=== PATIENT | male | born 1950 | race African-American/Black ===

== ENCOUNTER 2021-11-12 07:11 | Inpatient (IN) ==
[~2021-11-12 07:11] MED LIST: LACTATED RINGERS 1,000 ML IV SCH
[2021-11-12] MEDS ORDERED: GABAPENTIN 400 MG CAPSULE PO ONE (07:38)
[2021-11-12] MEDS ORDERED: ACETAMINOPHEN 500 MG TABLET PO ONE (07:38)
[2021-11-12] MEDS ORDERED: DIAZEPAM 5 MG TABLET PO ONE (07:38)
[2021-11-12] MEDS ORDERED: FAMOTIDINE 20 MG TABLET PO ONE (07:38)
[2021-11-12] MEDS ORDERED: TISSUE ADHESIVE 1 EACH APPLICATOR TOP ONE (09:14)
[2021-11-12] MEDS ORDERED: LIDOCAINE 1%/EPI INJ 20 ML VIAL ONE (09:14)
[2021-11-12] MEDS ORDERED: BUPIVACAINE MPF 0.25% 30 ML VIAL ONE (09:14)
[2021-11-12] MEDS ORDERED: ONDANSETRON 4 MG/2 ML VIAL ONE (09:33)
[2021-11-12] MEDS ORDERED: LIDOCAINE 2% 5 ML VIAL ONE (09:33)
[2021-11-12] MEDS ORDERED: fentaNYL 100 MCG/2 ML VIAL ONE (09:33)
[2021-11-12] MEDS ORDERED: DEXAMETHASONE 4 MG/1 ML VIAL ONE (09:33)
[2021-11-12] MEDS ORDERED: SEVOFLURANE 1 UNIT/15 MINUTE INH ONE ×5 (09:33→12:12)
[2021-11-12] MEDS ORDERED: ROCURONIUM 50 MG/5 ML VIAL IV ONE (09:33)
[2021-11-12] MEDS ORDERED: propofoL 200 MG/20 ML VIAL IV ONE (09:33)
[2021-11-12] MEDS ORDERED: MIDAZOLAM 2 MG/2 ML VIAL ONE (09:55)
[2021-11-12] MEDS ORDERED: ePHEDrine 50 MG/ML VIAL ONE (10:38)
[2021-11-12] MEDS ORDERED: LACTATED RINGERS 1,000 ML IV ONE (11:18)
[2021-11-12] MEDS ORDERED: GLYCOPYRROLATE 0.4 MG/2 ML VIAL ONE (12:12)
[2021-11-12] MEDS ORDERED: NEOSTIGMINE 10 MG/10 ML VIAL ONE (12:12)
[2021-11-12] MEDS ORDERED: ONDANSETRON 4 MG/2 ML VIAL IV PRN (12:41)
[2021-11-12] MEDS ORDERED: MORPHINE 2 MG/1 ML SYRINGE IV PRN (12:41)
[2021-11-12 13:34] LABS: Hematocrit 39.2 VOL% (42.0-52.0)
[2021-11-12] MEDS: DEXTROSE 5% LACTATED RINGERS 1,000 ML IV SCH ×2 (13:56→22:33)
[2021-11-12] MEDS ORDERED: INFLUENZA VIRUS VACCINE 0.5 ML SYRINGE IM ONE (15:09)
[2021-11-12] MEDS ORDERED: PNEUMOCOCCAL VACCINE (13 VALENT) 0.5 ML SYRINGE IM ONE (15:09)
[2021-11-12 21:04] LABS: Hematocrit 38.2 VOL% (42.0-52.0)
[2021-11-13] MEDS: MORPHINE 4 MG/1 ML VIAL IV PRN ×4 (03:47→20:40)
[2021-11-13 06:27] LABS: Basophils % 0.2 % (0.0-0.8); Hematocrit 37.3 VOL% (42.0-52.0); Hemoglobin 12.5 GM/DL (14.0-18.0); Immature Granulocytes % 0.5 %; Immature Granulocytes Absolute 0.05 #; Lymphocytes # 0.8 10*3/uL (1.4-4.0); Lymphocytes % 8.3 % (21.2-54.2); Mean Corpuscular HGB Conc 33.5 GM/DL (32-36); Mean Corpuscular Volume 97.6 FL (87-102); Mean Platelet Volume 9.4 FL (9.6-12.0); Platelet Count 223 T/CUMM (130-400); Red Blood Count 3.82 MC/CUMM (3.8-5.5); Red Cell Distribution Width 11.9 % (9.3-17.3); White Blood Count 9.9 T/CUMM (4-12)
[2021-11-13 06:35] LABS: Albumin 2.9 G/DL (3.4-5.0); Bilirubin,Total 4.1 MG/DL (0.20-1.00); Calcium 8.7 MG/DL (8.5-10.1); Osmolality,Calculated 286.1 MOS/KG (273-304); Potassium 3.9 MMOL/L (3.5-5.1); Total Protein 6.4 G/DL (6.4-8.2)
[2021-11-13 06:36] LABS: Hematocrit 37.3 VOL% (42.0-52.0); Hemoglobin 12.3 GM/DL (14.0-18.0)
[2021-11-13 06:58] LABS: Hypochromia Slight; Lymphocytes 6 % (20-55); Microcytosis Slight; Platelet Estimate Adequate; Segmented Neutrophils 84 % (50-85); Total Cells Counted 100
[2021-11-13] MEDS: DEXTROSE 5% LACTATED RINGERS 1,000 ML IV SCH ×2 (07:58→16:48)
[2021-11-13] MEDS: PANTOPRAZOLE 40 MG TABLET PO SCH (08:26)
[2021-11-14] MEDS: MORPHINE 4 MG/1 ML VIAL IV PRN ×2 (00:40→07:19)
[2021-11-14] MEDS ORDERED: ALBUTEROL/IPRATROPIUM 3 ML NEB RESP TX STA (00:45)
[2021-11-14] MEDS: DEXTROSE 5% LACTATED RINGERS 1,000 ML IV SCH ×3 (01:00→17:15)
[2021-11-14 05:07] LABS: Basophils % 0.2 % (0.0-0.8); Eosinophils % 0.4 % (0.00-10.9); Hematocrit 35.7 VOL% (42.0-52.0); Hemoglobin 11.8 GM/DL (14.0-18.0); Immature Granulocytes % 0.5 %; Immature Granulocytes Absolute 0.05 #; Lymphocytes # 1.1 10*3/uL (1.4-4.0); Lymphocytes % 10.5 % (21.2-54.2); Mean Corpuscular HGB Conc 33.1 GM/DL (32-36); Mean Corpuscular Volume 99.2 FL (87-102); Monocytes % 7.5 % (1.7-12.7); Neutrophils % 80.9 % (38.7-73.9); Platelet Count 196 T/CUMM (130-400); Red Cell Distribution Width 11.7 % (9.3-17.3); White Blood Count 10.2 T/CUMM (4-12)
[2021-11-14 05:11] LABS: INR 1.1
[2021-11-14 05:25] LABS: Albumin 2.8 G/DL (3.4-5.0); Bilirubin,Total 2.3 MG/DL (0.20-1.00); Calcium 8.6 MG/DL (8.5-10.1); Osmolality,Calculated 276.5 MOS/KG (273-304); Potassium 3.9 MMOL/L (3.5-5.1); Total Protein 6.5 G/DL (6.4-8.2)
[2021-11-14] MEDS ORDERED: INDOMETHACIN SUPP 50 MG SUPP RECTAL ONE (06:18)
[2021-11-14] MEDS: LACTATED RINGERS 1,000 ML IV SCH (07:59)
[2021-11-14] MEDS: PANTOPRAZOLE 40 MG TABLET PO SCH (08:12)
[2021-11-14] MEDS: INDOMETHACIN SUPP 50 MG SUPP RECTAL ONE ×2 (09:42→10:05)
[2021-11-14] MEDS ORDERED: fentaNYL 100 MCG/2 ML VIAL ONE (09:49)
[2021-11-14] MEDS ORDERED: MIDAZOLAM 2 MG/2 ML VIAL ONE (09:49)
[2021-11-14] MEDS ORDERED: ROCURONIUM 50 MG/5 ML VIAL IV ONE (09:50)
[2021-11-14] MEDS ORDERED: LIDOCAINE 2% 5 ML VIAL ONE (09:50)
[2021-11-14] MEDS ORDERED: propofoL 200 MG/20 ML VIAL IV ONE (09:50)
[2021-11-14] MEDS ORDERED: SUCCINYLCHOLINE 200 MG/10 ML VIAL ONE (09:50)
[2021-11-14] MEDS ORDERED: SEVOFLURANE 1 UNIT/15 MINUTE INH ONE ×2 (10:33→10:59)
[2021-11-15] MEDS: DEXTROSE 5% LACTATED RINGERS 1,000 ML IV SCH (03:29)
[2021-11-15 06:58] LABS: Basophils % 0.2 % (0.0-0.8); Eosinophils # 0.1 10*3/uL (0.0-0.87); Eosinophils % 1.6 % (0.00-10.9); Hematocrit 36.3 VOL% (42.0-52.0); Hemoglobin 11.8 GM/DL (14.0-18.0); Immature Granulocytes % 0.5 %; Immature Granulocytes Absolute 0.04 #; Lymphocytes # 1.8 10*3/uL (1.4-4.0); Lymphocytes % 20.9 % (21.2-54.2); Mean Corpuscular HGB Conc 32.5 GM/DL (32-36); Mean Corpuscular Volume 99.7 FL (87-102); Mean Platelet Volume 9.7 FL (9.6-12.0); Monocytes % 9.6 % (1.7-12.7); Neutrophils % 67.2 % (38.7-73.9); Platelet Count 213 T/CUMM (130-400); Red Blood Count 3.64 MC/CUMM (3.8-5.5); Red Cell Distribution Width 11.4 % (9.3-17.3); White Blood Count 8.7 T/CUMM (4-12)
[2021-11-15 07:13] LABS: Albumin 2.9 G/DL (3.4-5.0); Bilirubin,Total 1.5 MG/DL (0.20-1.00); Calcium 8.5 MG/DL (8.5-10.1); Osmolality,Calculated 281.1 MOS/KG (273-304); Potassium 3.7 MMOL/L (3.5-5.1); Total Protein 7.1 G/DL (6.4-8.2)
[2021-11-15] MEDS: LACTATED RINGERS 1,000 ML IV SCH (07:46)
[2021-11-15] MEDS: PANTOPRAZOLE 40 MG TABLET PO SCH (08:37)
[2021-11-15 11:51] VITALS: BP 158/84
== END 2021-11-15 10:53 | disposition home or self-care (01) | DRG 416 ==
LOC: N.OR 07:11 → N.SDSINP 07:15 → N.3E 13:48
PROVIDERS: ADMIT Surgery; ATTEND Surgery
PROC: LAPCHOL (2021-11-12 09:55)
PROC: ERCPWSP (ICD-10-PCS; 2021-11-14 08:35)